=== PATIENT | female | born 1975 | race Two or more races ===

== ENCOUNTER 2019-11-15 15:39 | Emergency (ER) | payer SELFPAY ==
[~2019-11-15] VITALS: Ht 154.9 cm; Wt 62.1 kg
[2019-11-15 15:41] VITALS: BP 103/81
--- NOTE | 2019-11-15 15:58 | NUR ---
RN WAS WALKING PT AND DAUGHTER BACK TO ROOM AND SHE WAS TALKING TO DAUGHTER IN [place] WHEN DAUGHTER TOLD RN SUDDENLY THAT "MY MOM JUST WANTS TO GO HOME. SHE DOESN'T WANT TO BE HERE." RN ASKED IF THEY COULD DO ANYTHING AND ASKED IF SHE WAS SURE, PT AND PT'S DAUGHTER DENIED ANY NEEDS/CONCERNS AND INSISTED ON LEAVING PRIOR TO BEING SEEN BY A PROVIDER.
== END 2019-11-15 16:02 | disposition left against medical advice (07) ==
LOC: ED 15:55
DX: R50.9 Fever, unspecified (principal); J00 Acute nasopharyngitis [common cold]; Z53.21 Procedure and treatment not carried out due to patient leaving prior to being seen by health care provider